=== PATIENT | male | born 1975 | race Caucasian/White ===

== ENCOUNTER 2016-12-05 06:00 | Inpatient (IN) | payer MEDICARE ==
--- NOTE | ~2016-12-05 | PN ---
Unit #: [id number] #: [id number] Patient: JACQUE AGOSTO [id number] [facility] [address] [place] [address] [id number] MR#: [id number] NAME: JACQUE AGOSTO. ROOM: P203 Age: 41 Sex: M Admission Date: 12/05/2016 : 1975 Attending Physician: Lionel Read M.D. Admitting Physician: Lionel Read M.D. Primary Care Physician: Primary Care Physician Teodora BARTON PROGRESS NOTES DATE OF SERVICE 12/10/2016 DISCUSSION Mr. Agosto is a 41-year-old white male who was seen today. Chart was reviewed and case was discussed with the staff. He has been anxious, withdrawn, and rather seclusive to himself. Meanwhile, she has been cooperative with the treatment recommendations and has been taking the medications and tolerating them fairly well. MENTAL STATUS EXAMINATION Middle-aged white male who is casually dressed with fair personal hygiene, appears to be in no acute distress or discomfort. He was awake and alert with intact orientation. His mood is anxious with congruent affect. He denies any suicidal or homicidal ideations. His insight and judgment remain slightly impaired. TREATMENT PLAN 1. We will continue him on his current treatment protocol. We will monitor his response to the medications and make further adjustments as needed. 2. We will continue to follow up. Dictated by... Lionel Read M.D. IAA/bzg TD: 12/10/2016 15:10 JOB #: [id number] [facility] PROGRESS NOTES Page 1 of 1 X Lionel Read MD PROGRESS NOTE
--- NOTE | ~2016-12-05 | PN ---
Unit #: [id number] #: [id number] Patient: JACQUE AGOSTO [id number] [facility] [address] [place] [address] [id number] I MR#: [id number] NAME: JACQUE AGOSTO. ROOM: P203 Age: 41 Sex: M Admission Date: 12/05/2016 : 1975 Attending Physician: Lionel Read M.D. Admitting Physician: Lionel Read M.D. Primary Care Physician: Primary Care Physician Teodora REY NOTES DATE 12/07/2016 DISCUSSION Mr. Agosto is a 41-year-old white male who was seen today and chart was reviewed, and case was discussed with the staff. He has been anxious, withdrawn, and rather seclusive to himself. Meanwhile, he has been cooperative with the treatment recommendations and has been taking the medication and tolerating them fairly well with no reported side effects. MENTAL STATUS EXAMINATION Middle-aged white male who was casually dressed with fair personal hygiene, appears to be in no acute distress or discomfort. He was awake and alert on interaction with intact orientation. His mood was anxious with a congruent affect. He denies any suicidal or homicidal ideations. His insight and judgment remain slightly impaired. TREATMENT PLAN 1. We will continue his current medications and treatment protocol. We will monitor his response and make further adjustments as needed. 2. We will continue to follow up. Dictated by... Rhonda Collins/shoaib TD: 12/08/2016 11:07 JOB #: [id number] Unit #: [id number] #: [id number] Patient: JACQUE AGOSTO MICK PROGRESS NOTES Page 1 of 1 X Lionel Read MD PROGRESS NOTE
--- NOTE | ~2016-12-05 | PN ---
Unit #: [id number] #: [id number] Patient: JACQUE AGOSTO [id number] [facility] [address] [place] [address] [id number] I MR#: [id number] NAME: JACQUE AGOSTO. ROOM: P203 Age: 41 Sex: M Admission Date: 12/05/2016 : 1975 Attending Physician: Lionel Read M.D. Admitting Physician: Lionel Read M.D. Primary Care Physician: Primary Care Physician Teodora BARTON PROGRESS NOTES DATE 12/09/2016 DISCUSSION Mr. Agosto is a 41-year-old, white male who was seen today and chart was reviewed and case was discussed with the staff. He has been anxious, withdrawn and rather seclusive to himself. He has been cooperative with the treatment recommendations has been taking the medication and tolerating them fairly well. MENTAL STATUS EXAM Middle-aged white male who was casually dressed with fair personal hygiene, appears to be in slight distress or discomfort. He was awake and alert with intact orientation. His mood was anxious with congruent affect. He denies any suicidal or homicidal ideation. His insight and judgement remains slightly impaired. TREATMENT PLAN 1. We will continue him on his current medications and treatment protocol. We will monitor his response to the medication and make further adjustments as needed. 2. We will continue to follow up. Dictated by... Rhonda Collins/tonia TD: 12/10/2016 02:31 JOB #: [id number] Unit #: [id number] #: [id number] Patient: JACQUE AGOSTO MICK PROGRESS NOTES Page 1 of 1 X Lionel Read MD PROGRESS NOTE
--- NOTE | ~2016-12-05 | PN ---
Unit #: [id number] #: [id number] Patient: JACQUE AGOSTO [id number] [facility] [address] [place] [address] [id number] I MR#: [id number] NAME: JACQUE AGOSTO. ROOM: P203 Age: 41 Sex: M Admission Date: 12/05/2016 : 1975 Attending Physician: Lionel Read M.D. Admitting Physician: Lionel Read M.D. Primary Care Physician: Primary Care Physician Teodora BARTON PROGRESS NOTES DATE OF SERVICE 12/11/2016 DISCUSSION Mr. Agosto is a 41-year-old white male with mood disorder and substance abuse who was seen today. Chart was reviewed and case was discussed with the staff. He reports doing much better and appears to be coming out of the detox without any complications 23 -------- has been noted. He has been taking the medications and tolerating them fairly well. MENTAL STATUS EXAMINATION Middle-aged white male who is casually dressed with fair personal hygiene, appears to be in no acute distress or discomfort. He was awake and alert on interaction with intact orientation. His mood is anxious with congruent affect. He denies any suicidal or homicidal ideations. His insight and judgment remain slightly impaired. TREATMENT PLAN 1. We will continue him on his current medications and treatment protocol. We will monitor his response to the medications and make further adjustments as needed. 2. We will continue to follow up. Dictated by... Lionel Read M.D. IAA/bzg TD: 12/11/2016 12:38 JOB #: [id number] Unit #: [id number] #: [id number] Patient: JACQUE AGOSTO PROGRESS NOTES Page 1 of 1 X Lionel Read MD X PROGRESS NOTE
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
--- NOTE | ~2016-12-05 | DS ---
Unit #: [id number] #: [id number] Patient: JACQUE AGOSTO [id number] [facility] [address] [place] [address] [id number] MR#: [id number] NAME: JACQUE AGOSTO. ROOM: P203 Age: 41 Sex: M Admission Date: 12/05/2016 : 1975 Discharge Date: 12/12/2016 Attending Physician: Lionel Read M.D. Primary Care Physician: Primary Care Physician No DISCHARGE SUMMARY IDENTIFYING DATA Ms. Agosto is a 41-year-old white male, with a history of mood disorder, who was self-referred to the hospital. HISTORY OF PRESENT ILLNESS Please see initial psychiatric evaluation for details. PAST PSYCHIATRIC HISTORY Please see initial psychiatric evaluation for details. PAST MEDICAL HISTORY Please see initial psychiatric evaluation for details. HOSPITAL COURSE The patient was admitted to the Adult Psychiatric Unit at [facility] and was oriented to the hospital environment, routine p.r.n. medications were initiated and he was started on the detox protocol and was closely monitored. He was taking the medications regularly and was tolerating them fairly well and able to show a decent therapeutic response and was willing to continue treatment on outpatient basis and as such it was decided that he will be discharged home and will continue treatment on outpatient basis. DISCHARGE DIAGNOSES Stanchfield I Alcohol dependence, moderate, in acute withdrawal. Benzodiazepine dependence, moderate, in acute withdrawal. Alcohol-induced mood disorder. Stanchfield II Stanchfield III Traumatic brain injury. Stanchfield IV Moderate psychosocial stressors. Stanchfield V FOLLOWUP CARE DISCHARGE MEDICATIONS 1. Vistaril 50 mg three times a day for anxiety 2. Seroquel 100 mg at bedtime for mood disorder CONDITION AT DISCHARGE Stable. Unit #: [id number] #: [id number] Patient: JACQUE AGOSTO. Dictated by... Rhonda Collins/sadia TD: 12/13/2016 11:20 JOB #: [id number] DISCHARGE SUMMARY Page 1 of 1 X Lionel Read MD DISCHARGE SUMMARY
--- NOTE | ~2016-12-05 | HP ---
Unit #: [id number] #: [id number] Patient: VENTURA AGOSTO [id number] [place] [address] [id number] MR#: [id number] NAME: VENTURA AGOSTO. ROOM: P203 Age: 41 Sex: M Admission Date: 12/05/2016 : 1975 Attending Physician: Lionel Read M.D. Admitting Physician: Lionel Read M.D. Primary Care Physician: Primary Care Physician No HISTORY AND PHYSICAL HISTORY OF PRESENT ILLNESS Ventura is a 41 year old, admitted to [address] [place] [address] because of his polysubstance abuse which includes alcohol and benzodiazepines. PAST MEDICAL HISTORY 1. Long history of polysubstance abuse to include alcohol and benzodiazepines. 2. High blood pressure. PAST SURGICAL HISTORY Nothing reported. ALLERGIES No known drug allergies. SOCIAL HISTORY He smokes one pac per day, drinks alcohol frequently, and has a history of abuse using benzodiazepines. FAMILY HISTORY Medically noncontributory. REVIEW OF SYSTEMS CONSTITUTIONAL: No fever or chills. HEENT: Denies any sore throat, ear pain or runny nose. CARDIOVASCULAR: Denies chest pain, irregular heart rhythm or palpitations. CHEST: Denies shortness of breath or cough. No hemoptysis. GASTROINTESTINAL: Denies nausea, vomiting, diarrhea or chronic constipation. ENDOCRINE: Denies history of increased thirst or urination. No recent significant weight loss or gain. GENITOURINARY: Denies dysuria, frequency, or hematuria. SKIN: Denies any rashes. HEMATOLOGIC: Denies history of increased bleeding or bruising. MUSCULOSKELETAL: Denies any hot, swollen joints. No generalized muscle pain. NEUROLOGIC: Denies problems with vision or speech. No frequent, severe headaches. No numbness, tingling or weakness in any extremities. Denies loss of bladder or bowel control. CURRENT MEDICATIONS Detox protocol. Unit #: [id number] #: [id number] Patient: VENTURA AGOSTO PHYSICAL EXAMINATION GENERAL: Alert, well-nourished, no apparent distress. VITAL SIGNS: Blood pressure 120/76, heart rate 80, respirations 16, and temperature 98.6. WEIGHT: 195 pounds. HEIGHT: 6 feet 2 inches. SKIN: Warm and dry without rash or lesion. HEENT: Normocephalic. TMs not viewed. Oral and nasal passages clear. Conjunctivae clear. PERRLA. EOMs intact. NECK: Supple without lymphadenopathy or thyromegaly. HEART: Regular rate and rhythm without murmur. LUNGS: Clear. ABDOMEN: Soft, nontender. : Not done. EXTREMITIES: No evidence of cyanosis, clubbing or edema. Moves all without focal deficit. NEUROLOGICAL: Grossly within normal limits. Cranial Nerves: II: Visual neumann are intact. III, IV AND : Extraocular movements are intact. Pupils are equal, round and reactive to light. V: Facial sensation is grossly normal. VII: Facial movements and expression are normal. VIII: Auditory acuity grossly intact. IX, X: Uvula is midline. Phonation is normal. XI: Patient shrugs shoulders and turns head normally. XII: Tongue protrudes in the midline. Sensory and Motor Function: Sensory and motor sensation is grossly normal. Motor: moves all extremities well. Coordination: Gait is normal. Deep Tendon Reflexes: Intact. IMPRESSION Psychiatric admission. RECOMMENDATIONS Psychiatric, per psychiatrist. MEDICAL I see no contraindications to participating in facility's activities. MEDICAL PROGNOSIS Good. MEDICAL CONDITION Stable. Dictated by... Carla Soriano PTinoAMark. for Rhonda Velazquez/sadia TD: 12/06/2016 04:59 JOB #: [id number] Unit #: [id number] #: [id number] Patient: VENTURA AGOSTO HISTORY AND PHYSICAL Page 1 of 1 X Carla Soriano X HISTORY AND PHYSICAL
--- NOTE | ~2016-12-05 | HP ---
Unit #: [id number] #: [id number] Patient: VENTURA AGOSTO [id number] [place] [address] [id number] I MR#: [id number] NAME: VENTURA AGOSTO. ROOM: P203 Age: 41 Sex: M Admission Date: 12/05/2016 : 1975 Attending Physician: Lionel Read M.D. Admitting Physician: Lionel Read M.D. Primary Care Physician: Primary Care Physician No HISTORY AND PHYSICAL HISTORY OF PRESENT ILLNESS Ventura is a 41-year-old male, who has complaints of a sore right toe after he dropped a beer can on it 4 days ago. He is having some redness and swelling in the toe and his toenail falling to come off. He reports that it beginning to feel worse. He also noticed some warmth in the toe. He also has complaints of a sore on his left buttocks that he first noticed about a week and half ago. He had been drinking and is not sure how exactly happened. He does report that it is getting much better than it had been initially. He is covering with a bandage and has no other complaints. PHYSICAL EXAMINATION CARDIAC: Regular rate and rhythm. No murmurs, gallops, or rubs. RESPIRATORY: Clear to auscultation bilaterally. SKIN: Right great toe with toenail falling off and erythema and warmth. No streaking. No fluid oozing. 3 cm abrasion on right buttock that appears to be healing well. No signs or symptoms of infection. ASSESSMENT AND PLAN 1. Right great toe injury. The patient does have some swelling in the toe and it does appear to possibly be beginning stages of cellulitis. We will begin Keflex 500 mg p.o. t.i.d. and monitor closely. Encouraged to wash the area well and keep dry. 2. Abrasion on left buttocks that appears to be healing well. The patient instructed to wash gently with soap and water when showering. Dictated by... Jairo Rios/andrade TD: 12/06/2016 22:52 JOB #: [id number] Unit #: [id number] #: [id number] Patient: VENTURA AGOSTO HISTORY AND PHYSICAL Page 1 of 1 X DINAH PETERSON APRN X HISTORY AND PHYSICAL
--- NOTE | ~2016-12-05 | PN ---
Unit #: [id number] #: [id number] Patient: JACQUE AGOSTO [id number] [facility] [address] [place] [address] [id number] I MR#: [id number] NAME: JACQUE AGOSTO. ROOM: P203 Age: 41 Sex: M Admission Date: 12/05/2016 : 1975 Attending Physician: Lionel Read M.D. Admitting Physician: Lionel Read M.D. Primary Care Physician: Primary Care Physician Teodora REY NOTES DATE OF SERVICE: 12/05/2016 SUBJECTIVE Mr. Agosto is a 41-year-old white male with alcohol dependency, who was seen today and chart was reviewed, and case was discussed with the staff. He has been anxious, withdrawn, in acute distress or discomfort as he goes through detox. Meanwhile, he has been taking the medications and tolerating them fairly well with no reported side effects. MENTAL STATUS EXAMINATION Middle-aged white male who was casually dressed with fair personal hygiene, appears to be in no acute distress or discomfort. He was awake and alert on interaction with intact orientation. His mood was anxious with a congruent affect. His speech was slow and restricted in content. He denies any suicidal or homicidal ideations, and also denies any auditory or visual hallucinations. His insight and judgment remain slightly impaired. TREATMENT PLAN 1. We will continue him on his current medications and treatment protocol including alcohol detox medications. We will monitor his response to medications and make further adjustments as needed. 2. We will continue to follow up. Dictated by... Rhonda Collins/andrade TD: 12/06/2016 12:33 JOB #: [id number] Unit #: [id number] #: [id number] Patient: JACQUE AGOSTO MICK REY NOTES Page 1 of 1 X Lionel Read MD PROGRESS NOTE
--- NOTE | ~2016-12-05 | PN ---
Unit #: [id number] #: [id number] Patient: JACQUE AGOSTO [id number] [facility] [address] [place] [address] [id number] MR#: [id number] NAME: JACQUE AGOSTO. ROOM: P203 Age: 41 Sex: M Admission Date: 12/05/2016 : 1975 Attending Physician: Lionel Read M.D. Admitting Physician: Lionel Read M.D. Primary Care Physician: Primary Care Physician Teodora BARTON PROGRESS NOTES DATE OF SERVICE: 12/08/2016 SUBJECTIVE Mr. Agosto is a 41-year-old white male, who was seen today and chart was reviewed, and case was discussed with the staff. He has been anxious, withdrawn, and rather seclusive to himself. Meanwhile, he has been cooperative with treatment recommendations and has been taking the medications and tolerating them fairly well with no reported side effects. MENTAL STATUS EXAMINATION Middle-aged white male, who was casually dressed with fair personal hygiene, appears to be in no acute distress or discomfort. He was awake and alert on interaction with intact orientation. His mood was anxious with a congruent affect. He denies any suicidal or homicidal ideations. His insight and judgment remain slightly impaired. TREATMENT PLAN 1. We will continue him on his current medications and treatment protocol. We will monitor his response to the medications and make further adjustments as needed. 2. We will continue to follow up. Dictated by... Rhonda Collins/andrade TD: 12/08/2016 13:20 JOB #: [id number] [facility] PROGRESS NOTES Page 1 of 1 X Lionel Read MD X PROGRESS NOTE
[2016-12-06 09:57] LABS: BASOPHIL% 0.6 % (0-2.5); EOSINOPHIL# 0.4 X10e3 (0-0.7); EOSINOPHIL% 4.8 % (0.0-7.0); HEMATOCRIT 42.8 % (38.0-50.0); HEMOGLOBIN 14.4 gm/dL (13.0-16.0); LYMPHOCYTE# 2.5 X10e3 (1.0-3.5); LYMPHOCYTE% 31.2 % (17.0-45.0); MEAN CELL VOLUME 94.3 FL (83-96); MEAN CORPUSCULAR HEMOGLOBIN 31.8 PG (28-34); MEAN CORPUSCULAR HGB CONC 33.7 g/dL (30-36); MEAN PLATELET VOLUME 9.7 FL (6.5-11.5); MONOCYTE# 0.5 X10e3 (0-1.0); MONOCYTE% 6.4 % (3.0-12.0); NEUTROPHIL# 4.6 X10e3 (1.5-7.1); PLATELET COUNT 237 X10e3 (140-420); RED BLOOD COUNT 4.54 X10e (3.90-5.60); RED CELL DISTRIBUTION WIDTH 12.9 % (11.0-15.5); WHITE BLOOD COUNT 8.1 X10e3 (4.0-10.5)
[2016-12-06 10:00] LABS: DIFF IND NO
== END 2016-12-12 10:56 | disposition home or self-care (01) | DRG 897 ==
LOC: P2S 10:54
PROVIDERS: Psychiatry & Neurology Psychiatry
PROC: HZ2ZZZZ Detoxification Services for Substance Abuse Treatment (ICD-10-PCS; principal; 2016-12-05)
DX: F10.239 Alcohol dependence with withdrawal, unspecified (principal); F10.24 Alcohol dependence with alcohol-induced mood disorder; F13.239 Sedative, hypnotic or anxiolytic dependence with withdrawal, unspecified; S99.921A Unspecified injury of right foot, initial encounter; L03.031 Cellulitis of right toe; S30.810A Abrasion of lower back and pelvis, initial encounter
CPT/HCPCS: 85025; 86592